=== PATIENT | male | born 1950 | race Caucasian/White ===

== ENCOUNTER 2016-07-01 16:21 | Emergency (ER) | payer OTHER ==
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
[2016-07-01 16:35] VITALS: BP 197/125; PULSE 64; RESP 14; TEMP 98.4; O2SAT 98
== END 2016-07-01 17:01 | disposition home or self-care (01) ==
LOC: EDUNIT#
DX: S00.81XA Abrasion of other part of head, initial encounter (principal); I10 Essential (primary) hypertension; I25.2 Old myocardial infarction; Z87.891 Personal history of nicotine dependence; V89.2XXA Person injured in unspecified motor-vehicle accident, traffic, initial encounter; Y92.410 Unspecified street and highway as the place of occurrence of the external cause

== ENCOUNTER 2016-07-16 17:16 | Emergency (ER) | payer OTHER ==
--- NOTE | 2016-07-16 18:05 | CPEKG ---
Heart Rate: 53 RR Interval: 1132 P-R Interval: 224 QRSD Interval: 90 QT Interval: 476 QTC Interval: 447 P [place]: 29 QRS [place]: -34 T Wave [place]: 22 EKG Severity - ABNORMAL ECG - EKG Impression: SINUS RHYTHM EKG Impression: FIRST DEGREE AV BLOCK EKG Impression: LEFT AXIS DEVIATION Electronically Signed By: Milan Jacques 16-Jul-2016 23:14:56
--- NOTE | 2016-07-16 19:02 | EDPHY ---
H & P Time Seen by Provider: 07/16/16 17:56 HPI/ROS: HPI Elevated blood pressure. 66-year-old male by private vehicle with his . 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 He reports that he felt ill today which she describes as feeling nauseous and low on energy. He came home from work. He felt better. He checked his blood pressure and it was 194/140. He called his primary care physician at [facility] was told to come to the emergency department for evaluation. He has a history of difficult to control hypertension. He is currently on hydralazine at 10 mg twice daily, Coreg 80 mg daily and ramipril 20 mg twice daily. He reports that he took his blood pressure medications this morning. He denies any associated symptoms. ROS: Constitutional: No fever, no chills. No weakness. Eyes: No discharge. No changes in vision. ENT: No sore throat. No nasal congestion or rhinorrhea. Respiratory: No cough. No shortness of breath. Cardiac: No chest pain, no palpitations. Gastrointestinal: No abdominal pain, no vomiting, no diarrhea. Genitourinary: No hematuria. No dysuria or increased frequency with urination. Musculoskeletal: No back pain. No neck pain. No myalgias or arthralgias. Skin: No rashes. Neurological: No headache. No focal weakness or altered sensation. Past medical history: Social history: Physical Exam: General Appearance: Alert, no distress. This patient is responding to questions appropriately and in full sentences. This patient appears well- hydrated and well-nourished. Eyes: Pupils equal and round no pallor or injection. No lid edema, erythema or injection. Respiratory: There are no retractions, lungs are clear to auscultation with good air movement bilaterally. Cardiovascular: Regular rate and rhythm. No murmur. Gastrointestinal: Abdomen is soft and nontender, no masses, bowel sounds normal. No focal tenderness at McBurney's point. No Martinez sign. Neurological: Motor sensory function is grossly intact. Cranial nerves are normal. Gait is normal. Skin: Warm and dry, no rashes. Musculoskeletal: Neck is supple and nontender. Extremities are symmetrical. All joints range without pain or impingement. Psychiatric: No agitation. No depression. Database: EKG: EKG time is 6:02 p.m.; EKG shows a narrow complex normal sinus rhythm with a ventricular rate of 53. Borderline first-degree AV block noted. The QRS, QT intervals are within normal limits. Left axis deviation. There are no ST-T wave changes indicative of ischemic or injury pattern. No evidence of right heart strain. Interpreted by me. Imaging: Procedures: Emergency department course: Patient's vital signs were reviewed, blood pressure in triage 228/147. On my evaluation, blood pressure 189/124. EKG performed. After discussion and evaluation regarding the patient's antihypertensive medications and what he is already taken today. I will give him a 50 mg of oral hydralazine in the emergency department. I discussed the importance of his primary care physician managing his hypertension and a long-term basis. He has an appointment to see his primary care physician tomorrow. I also discussed working him up in the emergency department with blood work recheck his chemistries, kidney function and troponin. He and his refused this. Stating that they are concerned about the cost and that they would have this done through her primary care physician tomorrow in his follow-up. I explained I was concerned about the elevation of his blood pressure and the reasoning for doing these tests in the emergency department. In my professional opinion they understood this. However , they declined these tests. 8:20 p.m., patient re-evaluated. He has had 50 mg of oral hydralazine. Blood pressure is 193/129. He remains asymptomatic. He is requesting discharge at this time. He has a follow-up appointment with his primary care physician tomorrow. I discussed the importance of better control of his hypertension. Return to emergency department precautions were reviewed with him. All of his questions were answered. He was discharged in good condition. Differential Diagnosis: The differential diagnosis on this patient includes but is not limited to uncontrolled hypertension. Hypertensive emergency, CVA, acute coronary syndrome unlikely. This represents a partial list of diagnoses considered. These considerations are based on history, physical exam, past history, reassessment and diagnostic testing. Smoking Status: Former smoker Constitutional: Initial Vital Signs Temperature (C) 37 C 07/16/16 17:27 Heart Rate 60 07/16/16 17:27 Respiratory Rate 22 H 07/16/16 17:27 Blood Pressure 228/147 H 07/16/16 17:27 O2 Sat (%) 94 07/16/16 17:27 O2 Delivery Mode Room Air Allergies/Adverse Reactions: hydrochlorothiazide Allergy (Verified 07/16/16 17:26) REAPRO Allergy (Severe, Uncoded 07/06/10 14:53) Home Medications: Medication Instructions Recorded CO Q-10 75 mg PO DAILY 07/06/10 COREG CR 80 mg PO DAILY 07/06/10 Nitrostat 07/06/10 [place] 5/325 07/06/10 Plavix 75 mg PO DAILY 07/06/10 VITAMIN D 400 mg PO DAILY 07/06/10 Coreg 12/19/15 hydrALAZINE 12/19/15 Ramipril 07/16/16 Medical Decision Making - Data Points Medications Given: Discontinued Medications Hydralazine HCl (Apresoline) 50 mg PO EDNOW ONE Stop: 07/16/16 18:44 Last Admin: 07/16/16 19:24 Dose: 50 mg Departure - Departure Disposition: Home, Routine, Self-Care Clinical Impression: Uncontrolled hypertension Condition: Good Instructions: Hypertension (ED) Additional Instructions: Read and follow provided instructions. Follow-up with your primary care physician as discussed tomorrow without fail for further management of your hypertension. It is very important you do this. Take blood pressure medication as prescribed consistently. Return to the emergency department for worsening symptoms, chest pain, shortness of breath, weakness or other serious concerns. Referrals: Tyra Wallace PA [Primary Care Provider] - As per Instructions
[2016-07-16 20:58] VITALS: BP 178/119; PULSE 56; RESP 19; TEMP 98.1; O2SAT 96
== END 2016-07-16 20:58 | disposition home or self-care (01) ==
DX: I10 Essential (primary) hypertension (principal); Z87.891 Personal history of nicotine dependence

== ENCOUNTER → 2016-11-12 | Outpatient (CLI) | payer OTHER | LOC: BMCIMAGING 13:42 | PROVIDERS: ATTEND Orthopaedic Surgery | DX: M17.0 Bilateral primary osteoarthritis of knee (principal) ==

== ENCOUNTER → 2018-02-03 | Outpatient (CLI) | payer OTHER, MEDICARE ==
--- NOTE | 2018-02-03 08:58 | GOP ---
DATE OF OPERATION: 02/03/2018 SURGEON: Rafal Gaspar MD PREOPERATIVE DIAGNOSIS: Elevated prostate-specific antigen. POSTOPERATIVE DIAGNOSIS: Elevated prostate-specific antigen. PROCEDURE PERFORMED: Transrectal ultrasound-guided prostate biopsy. FINDINGS: INDICATIONS: This is a gentleman with a PSA of 10.2. DESCRIPTION OF PROCEDURE: Consent obtained. Patient was in the ultrasound suite at the [facility] Ultrasound. He was put in the lateral decubitus position. A transrectal ultrasound pro be was inserted and the prostate was visualized. It was measured in 3 planes and found to have a vol ume of approximately 30 mL. There were no lesions, neither hyperechoic or hypoechoic, seen within th e prostate. The seminal vesicles were also measured and found to be normal in size and configuration . 10 cc of 1% lidocaine was then injected at the base of the seminal vesicles in order to create a p rostate block. A total of 12 biopsies were taken following the normal prostate template. These were sent to Pathology for evaluation. The patient tolerated the procedure well. There were no complicat ions. No bleeding of note. /[id number]/MODL
== END ==
LOC: BMCIMAGING 07:29
PROVIDERS: ATTEND Urology
PROC: 0VB07ZX Excision of Prostate, Via Natural or Artificial Opening, Diagnostic (ICD-10-PCS; principal; 2018-02-03)
DX: R97.20 Elevated prostate specific antigen [PSA] (principal)